=== PATIENT | female | born 1995 | race Caucasian/White ===

== ENCOUNTER 2016-12-24 15:53 | Emergency (ER) | payer OTHER ==
[~2016-12-24] VITALS: Ht 154.9 cm; Wt 67.2 kg
[2016-12-24 16:34] VITALS: BP 117/59
[2016-12-24 18:04] LABS: BASOPHILS # (AUTO) 0.2 K/uL (0.00-0.22); EOSINOPHILS # (AUTO) 0.3 K/uL (0-0.4); HEMATOCRIT 38.5 % (36-48); HEMOGLOBIN 12.5 g/dL (12.0-16.0); LYMPHOCYTES # (AUTO) 1.8 K/uL (2.5-16.5); MEAN CORPUSCULAR HEMOGLOBIN 28 pg (27-31); MEAN CORPUSCULAR HGB CONC 33 g/dL (33-37); MEAN CORPUSCULAR VOLUME 85 fL (80-94); MONOCYTES # (AUTO) 0.5 K/uL (0.8-1.0); NEUTROPHILS # (AUTO) 5.7 K/uL (1.8-7.7); PLATELET COUNT (AUTO) 239 K/uL (140-450); RED BLOOD CELL COUNT(AUTO) 4.53 MIL/uL (4.20-5.40); RED CELL DISTRIBUTION WIDTH 12.6 % (11.6-13.7); WHITE BLOOD COUNT (AUTO) 8.5 K/uL (4.8-10.8)
[2016-12-24 18:17] LABS: ANION GAP 12.8 (8-16); CARBON DIOXIDE 24.2 mmol/L (21-32); CREATININE 0.6 mg/dL (0.6-1.3)
[2016-12-24 18:23] LABS: ALBUMIN 3.9 g/dL (3.4-5.0); TOTAL BILIRUBIN 0.2 mg/dL (0.0-1.0)
[2016-12-24 18:35] LABS: APPEARANCE,URINE CLEAR (CLEAR); BILIRUBIN,URINE NEGATIVE (NEGATIVE); BLOOD, URINE 2+ (NEGATIVE); COLOR,URINE YELLOW (YELLOW); LEUKOCYTE ESTERASE ,URINE NEGATIVE (NEGATIVE); NITRITE, URINE NEGATIVE (NEGATIVE); UGLUCOSE NEGATIVE (NEGATIVE)
--- NOTE | 2016-12-24 18:45 | NUR ---
PATIENT TO BED 3 AT THIS TIME.
--- NOTE | 2016-12-24 19:18 | NUR ---
21Y F BIB FAMILY C/O SUPRAPUBIC PAIN/ LEFT INGUINAL SHARP PAIN X 4 DAYS; PT DENIES VAGINAL BLEEDING, DENIES DYSURIA, DENIES VAG DISCHARGE. PT AAOX 4; HX---DENIES RX---NONE
--- NOTE | 2016-12-24 19:19 | NUR ---
ARMAAN JAIMES CHAPERONED ER MD DR. SON FOR FEMALE PELVIC EXAM AT THIS TIME.
[2016-12-24 21:13] VITALS: BP 109/62
--- NOTE | 2016-12-24 21:13 | NUR ---
Patient discharged with v/s stable. Written and verbal after care instructions given and explained. Patient alert, oriented and verbalized understanding of instructions. Ambulatory with steady gait. All questions addressed prior to discharge. ID band removed. Patient advised to follow up with PMD. Rx of ULTRAM 50MG given. PTAient educated on indication of medication including possible reaction and side effects. Opportunity to ask questions provided and answered.
[2016-12-29 08:43] LABS: CHLAMYDIA TRACHOMATIS AMP DNA NEGATIVE (NEGATIVE)
== END 2016-12-24 21:14 | disposition home or self-care (01) ==
LOC: MED 15:53
DX: N94.89 Other specified conditions associated with female genital organs and menstrual cycle (principal)
CPT/HCPCS: 36415; 74000; 76830; 80053; 81001; 81025; 83605; 85025; 87040; 87070; 87205; 87210; 87491; 99285